=== PATIENT | male | born 1985 | race Caucasian/White ===

== ENCOUNTER 2018-03-28 10:35 | Emergency (ER) | payer MEDICAID ==
--- NOTE | 2018-03-28 11:44 | EDM.PDOC ---
ED HPI GENERAL MEDICAL PROBLEM - General Chief Complaint: Lower Extremity Injury/Pain Stated Complaint: PAIN IN LEFT LEG Time Seen by Provider: 03/28/18 10:37 Source of Information: Reports: Patient History Limitations: Reports: No Limitations - History of Present Illness INITIAL COMMENTS - FREE TEXT/NARRATIVE: HISTORY AND PHYSICAL: History of present illness: Patient is a 32-year-old male who presents to the emergency room with complaints of left knee pain. Yesterday while at work he did get his shoe stuck in some mud and as he was pulling away he twisted his knee inward. Since that time he has had increased pain with weightbearing, ambulation, and internal/ external rotation and stress. He did not fall, hit his head, or any LOC. Denies any numbness or tingling to the distal extremity. Review of systems: As per history of present illness and below otherwise all systems reviewed and negative. Past medical history: As per history of present illness and as reviewed below otherwise noncontributory. Surgical history: As per history of present illness and as reviewed below otherwise noncontributory. Social history: No reported history of drug or alcohol abuse. Family history: As per history of present illness and as reviewed below otherwise noncontributory. Physical exam: General: Well-developed and well-nourished 32-year-old male. Alert and oriented. Nontoxic appearing and in no acute distress. HEENT: Atraumatic, normocephalic, pupils equal and reactive bilaterally, negative for conjunctival pallor or scleral icterus, mucous membranes moist, throat clear, neck supple, nontender, trachea midline. No drooling or trismus noted. No meningeal signs Lungs: Clear to auscultation, breath sounds equal bilaterally, chest nontender. Heart: S1S2, regular rate and rhythm without overt murmur Abdomen: Soft, nondistended, nontender. Negative for masses or hepatosplenomegaly. Negative for costovertebral tenderness. Pelvis: Stable nontender. Genitourinary: Deferred. Rectal: Deferred. Skin: Intact, warm, dry. No lesions or rashes noted. Extremities: Left knee is painful with varus and valgus stress. No laxity noted with anterior posterior drawer test however patient states it is painful. No patellar crepitus. No pain with flexion or extension of the knee. No effusion or erythema noted. He is negative for cords or calf pain. Neurovascular unremarkable. Neuro: Awake, alert, oriented. Cranial nerves II through XII unremarkable. Cerebellum unremarkable. Motor and sensory unremarkable throughout. Exam nonfocal. Notes: X-ray shows no evidence of fracture or dislocation. We'll place the patient in a knee immobilizer and given crutches. We did discuss the limitations of x-ray and I do feel that there may be some ligament/tendon involvement. Share this information with the patient. Encouraged him to follow-up with the orthopedist next week for further evaluation and management. I will give him tramadol, #15, no refill. Supportive care measures were reviewed and discussed. Voices understanding and is agreeable to plan of care. Diagnostics: Xray Therapeutics: Knee immobilizer, crutches Impression: Left Knee Pain Plan: 1. Rest, ice, elevate the affected extremity. Knee brace and crutches as we discussed. 2. Tylenol and/or ibuprofen as needed for pain management. Tramadol for moderate to severe pain. This medication may cause drowsiness a do not take it will driving her needing to be functioning outside of the house. 3. Please follow-up with the orthopedic provider next week. Return to the ED as needed and as discussed. Definitive disposition and diagnosis as appropriate pending reevaluation and review of above. Left Knee Pain Score (Numeric/FACES): 7 - Related Data Allergies Allergy/AdvReac Type Severity Reaction Status Date / Time sulfamethoxazole Allergy Cannot Verified 03/28/18 11:19 [From ] Remember trimethoprim [From ] Allergy Cannot Verified 03/28/18 11:19 Remember Home Meds: Home Meds . [No Known Home Meds] 03/28/18 [History] Past Medical History Psychiatric History: Reports: Anxiety - Past Surgical History Musculoskeletal Surgical History: Reports: Other (See Below) Other Musculoskeletal Surgeries/Procedures:: right thumb tendon surgery Social & Family History - Family History Family Medical History: Noncontributory - Tobacco Use Smoking Status *Q: Current Every Day Smoker Years of Tobacco use: 15 Packs/Tins Daily: 0.2 - Caffeine Use Caffeine Use: Reports: Coffee - Recreational Drug Use Recreational Drug Use: No Review of Systems - Review of Systems Review Of Systems: ROS reveals no pertinent complaints other than HPI. ED EXAM, GENERAL - Physical Exam Exam: See Below (See dictation) Course - Vital Signs Last Recorded V/S: Last Vital Signs Temp 98.1 F 03/28/18 11:12 Pulse 97 03/28/18 11:12 Resp 14 03/28/18 11:12 BP 116/69 03/28/18 11:12 Pulse Ox 97 03/28/18 11:12 - Orders/Labs/Meds Orders: Active Orders 24 hr Category Date Time Status Knee 3V Lt [CR] Stat Exams 03/28/18 11:24 Taken DME for Discharge [COMM] Stat Oth 03/28/18 11:59 Ordered Departure - Departure Time of Disposition: 11:58 Disposition: Home, Self-Care 01 Clinical Impression: Knee injury Qualifiers: Encounter type: initial encounter Laterality: left Qualified Code(s): S89.92XA - Unspecified injury of left lower leg, initial encounter - Discharge Information Instructions: Knee Sprain, Adult, [id number] Referrals: PCP,None [Primary Care Provider] - Forms: ED Department Discharge Additional Instructions: The following information is given to patients seen in the emergency department who are being discharged to home. This information is to outline your options for follow-up care. We provide all patients seen in our emergency department with a follow-up referral. The need for follow-up, as well as the timing and circumstances, are variable depending upon the specifics of your emergency department visit. If you don't have a primary care physician on staff, we will provide you with a referral. We always advise you to contact your personal physician following an emergency department visit to inform them of the circumstance of the visit and for follow-up with them and/or the need for any referrals to a consulting specialist. The emergency department will also refer you to a specialist when appropriate. This referral assures that you have the opportunity for follow-up care with a specialist. All of these measure are taken in an effort to provide you with optimal care, which includes your follow-up. Under all circumstances we always encourage you to contact your private physician who remains a resource for coordinating your care. When calling for follow-up care, please make the office aware that this follow-up is from your recent emergency room visit. If for any reason you are refused follow-up, please contact the [facility] Emergency Department at and asked to speak to the emergency department charge nurse. [facility] [address] [place] [address] [facility] Professional [facility] [address] [place] [address], [address] [place] [address] 1. Rest, ice, elevate the affected extremity. Knee brace and crutches as we discussed. 2. Tylenol and/or ibuprofen as needed for pain management. Tramadol for moderate to severe pain. This medication may cause drowsiness a do not take it will driving her needing to be functioning outside of the house. 3. Please follow-up with the orthopedic provider next week. Return to the ED as needed and as discussed. - My Orders Last 24 Hours: My Active Orders 03/28/18 11:59 DME for Discharge [COMM] Stat - Assessment/Plan Last 24 Hours: My Active Orders 03/28/18 11:59 DME for Discharge [COMM] Stat
--- NOTE | 2018-03-29 15:49 | CR ---
EXAM DATE: 03/28/18 PATIENT'S AGE: 32 Patient: ROBIN RODRIGUEZ Facility: [place], [place] Site . Site : 1985 Study: XRay Knee Left [id number] 12:16:51 PM Ordering Physician: Doctor Lockhart Final Report: INDICATION: Twisting injury with pain. TECHNIQUE: Three views of the left knee. COMPARISON: None FINDINGS: Bones: Alignment is normal. No fractures or bone lesions. Joint spaces: Unremarkable. Soft tissues: Unremarkable. IMPRESSION: Negative. Dictated by Sukumar Johns MD @ Mar 28 2018 12:43PM (Electronic Signature) Report Signed by Proxy. JHONATAN
== END 2018-03-28 12:46 | disposition home or self-care (01) ==
LOC: MW.ED 10:35
DX: S89.92XA Unspecified injury of left lower leg, initial encounter (principal); F17.210 Nicotine dependence, cigarettes, uncomplicated; Z88.2 Allergy status to sulfonamides; Z88.1 Allergy status to other antibiotic agents; W22.8XXA Striking against or struck by other objects, initial encounter; Y99.0 Civilian activity done for income or pay
CPT/HCPCS: 73562-26-LT; 73562-LT; 99283